=== PATIENT | female | born 1965 | race Caucasian/White ===

== ENCOUNTER 2017-05-04 12:43 | Emergency (ER) | payer OTHER, BC ==
[~2017-05-04] VITALS: Ht 162.6 cm; Wt 27.8 kg
[~2017-05-04 12:43] MED LIST: ADVIL PO; AMIT25TA2 OR; CODE30TA3 PO; LEVOXYL25 MCG PO; TRAM50TA2 OR; WELL100T2 OR; [UNRECOGNIZED DRUG - OTHER] PO
[2017-05-04] MEDS ORDERED: FLUO20CA19 PO (13:19)
[2017-05-04] MEDS ORDERED: TRAM50TA2 PO (13:19)
[2017-05-04] MEDS ORDERED: PRAV40TA2 PO (13:19)
[2017-05-04] MEDS ORDERED: SUMA100T2 PO (13:19)
[2017-05-04] MEDS ORDERED: KETOROLAC 60 MG/2 ML VIAL (J1885) IM ONE (15:45)
[2017-05-04] MEDS ORDERED: NAPR500T PO (16:04)
[2017-05-04] MEDS ORDERED: VALI5TAB PO (16:04)
[2017-05-04 16:12] VITALS: BP 115/78
== END 2017-05-04 16:13 | disposition home or self-care (01) ==
LOC: M ED 12:43
DX: S39.012A Strain of muscle, fascia and tendon of lower back, initial encounter (principal); X50.9XXA Other and unspecified overexertion or strenuous movements or postures, initial encounter; Y92.89 Other specified places as the place of occurrence of the external cause; Y93.89 Activity, other specified; Y99.8 Other external cause status; E03.9 Hypothyroidism, unspecified; Z79.899 Other long term (current) drug therapy; Z98.890 Other specified postprocedural states; Z88.2 Allergy status to sulfonamides
CPT/HCPCS: 96372; 99282; J1885

== ENCOUNTER → 2017-09-15 | Outpatient (REF) | payer BC, OTHER | LOC: M SFHCLERA 11:44 | DX: M54.5 Low back pain (principal) | CPT/HCPCS: 87186 ==

== ENCOUNTER → 2017-12-22 | Outpatient (REF) | payer BC | LOC: M LABDRAW1 11:52 | DX: E06.3 Autoimmune thyroiditis (principal) | CPT/HCPCS: 84443 ==

== ENCOUNTER → 2019-02-24 | Outpatient (REF) | payer BC ==
[~2019-02-24] MED LIST changes: +FLUO20CA19 PO; +NAPR-837 PO; +PRAV40TA2 PO; +SUMA100T2 PO; +TRAM50TA2 PO; +VALI5TAB PO
== END ==
LOC: M LABDRAW1 10:50
PROVIDERS: ATTEND Internal Medicine Endocrinology, Diabetes & Metabolism
DX: E06.3 Autoimmune thyroiditis (principal)